=== PATIENT | male | born 1950 | race Caucasian/White ===

== ENCOUNTER 2019-03-03 09:57 | Emergency (ER) | payer BC ==
[~2019-03-03] VITALS: Ht 182.9 cm; Wt 77.6 kg
[2019-03-03 10:04] VITALS: BP 151/82
--- NOTE | 2019-03-03 10:11 | NUR ---
PT AMBULATED TO ER BED 07
[2019-03-03] MEDS ORDERED: NACL 0.9% 1,000 ML IV ONE (10:29)
[2019-03-03] MEDS ORDERED: THIAMINE 200 MG/2 ML VIAL IM ONE (10:35)
--- NOTE | 2019-03-03 10:37 | NUR ---
PT GOING TO CT AT THIS TIME
--- NOTE | 2019-03-03 10:38 | NUR ---
PT BIB FOR ALOC X1 PER , PT HAD A FALL 1 MONTH AGO, HIT HIS HEAD WITH LOSS OF CONCIOUSNESS. PT WAS NOT SEEN BY A DR AND HAS HEADACHES SINCE. PER MENTAL STATUS HAS DECLINED, PT HAS FORGOTEN HOW TO DO USUAL TASK. NEGATIVE STRENGTH ASYMETRY, NEGATIVE FACIAL ASYMETRY. PT AAOX3, PERLLA, SPEECH DELAYED, MEMORY RECAL DELAYED. VSS. ER MD TO SEE PT. HX: DEPRESSION RX: IBUPROFEN, WELBUTRIN, ASPRIN
[2019-03-03 11:03] LABS: BASOPHILS % (AUTO) 0.7 % (0.0-2.0); EOSINOPHILS # (AUTO) 0.1 K/uL (0-0.4); HEMATOCRIT 45.2 % (36-52); HEMOGLOBIN 15.4 g/dL (12.0-18.0); LYMPHOCYTES # (AUTO) 1.8 K/uL (2.0-11.5); LYMPHOCYTES % (AUTO) 27.4 % (20.5-51.1); MEAN CORPUSCULAR HEMOGLOBIN 34 pg (27-31); MEAN CORPUSCULAR HGB CONC 34 g/dL (33-37); MEAN CORPUSCULAR VOLUME 101.2 fL (80-94); MONOCYTES # (AUTO) 0.7 K/uL (0.8-1.0); NEUTROPHILS % (AUTO) 59.9 % (42.2-75.2); PLATELET COUNT (AUTO) 275 K/uL (140-450); RED BLOOD CELL COUNT(AUTO) 4.46 MIL/uL (4.20-6.10); RED CELL DISTRIBUTION WIDTH 13.7 % (11.6-13.7); WHITE BLOOD COUNT (AUTO) 6.7 K/uL (4.8-10.8)
[2019-03-03 11:10] LABS: ANION GAP 12.4 (8-16); CARBON DIOXIDE 26.5 mmol/L (21-32); CHLORIDE 103 mmol/L (98-107); GFR ARICAN-AMERICAN 95 mL/min (>90); GLUCOSE 100 mg/dL (74-106); POTASSIUM 3.9 mmol/L (3.5-5.1); SODIUM SERUM 138 mmol/L (136-145); UREA NITROGEN, BLOOD 21 mg/dL (7-18)
--- NOTE | 2019-03-03 11:15 | NUR ---
PT UNABLE TO PROVIDE URINE SAMPLE AT THIS TIME.
[2019-03-03 11:25] LABS: ACETONE, SERUM NEGATIVE (NEGATIVE); ALBUMIN 3.3 g/dL (3.4-5.0); ASPARTATE AMINOTRANSFERASE 21 U/L (15-37); TOTAL BILIRUBIN 0.6 mg/dL (0.0-1.0)
[2019-03-03 11:26] LABS: ACETAMINOPHEN < 0.5 ug/ml (10-30); AMYLASE 33 U/L (25-115); LIPASE 124 U/L (73-393); MAGNESIUM 2.2 mg/dL (1.8-2.4)
[2019-03-03 11:29] LABS: PROTHROMBIN TIME 10.3 secs (10.8-13.4)
[2019-03-03 11:32] VITALS: BP 140/89
--- NOTE | 2019-03-03 11:50 | NUR ---
Patient to be transferred to [facility]. Is being transferred due to HIGHER LEVEL OF CARE. Receiving facility has accepting physician and available space. ER physician has signed transfer form. Patient or responsible alliance party has agreed to transfer and signed form. Patient belongings inventoried and will be sent with patient. Copy of nursing notes, lab reports, EKG, Physicians Orders and X-rays to be sent with patient. Report called to TEODORA GRIFFIN at receiving facility. [facility] ambulance service has been called for transfer. ETA is 5-10.
== END 2019-03-03 11:50 | disposition short-term general hospital (02) ==
LOC: MED 09:57
DX: S06.5X9A Traumatic subdural hemorrhage with loss of consciousness of unspecified duration, initial encounter (principal); W19.XXXA Unspecified fall, initial encounter; Y93.89 Activity, other specified; Y92.89 Other specified places as the place of occurrence of the external cause; Y99.8 Other external cause status
CPT/HCPCS: 36415; 70450; 71045; 80053; 82009; 82140; 82150; 83605; 83690; 83735; 84484; 85025; 85610; 93005; 96360; 96372; 99285; G0480; G0482; J3411; J7030; 99284

== ENCOUNTER 2020-12-12 09:14 | Emergency (ER) | payer BC ==
[~2020-12-12] VITALS: Ht 180.3 cm; Wt 80.7 kg
[2020-12-12 09:23] VITALS: BP 132/80
--- NOTE | 2020-12-12 09:25 | NUR ---
Ambulated to bed 4
--- NOTE | 2020-12-12 09:31 | NUR ---
Received care of a 70 y/o male coming from home c/o left eye pain, irritation described as "stinging" which started yesterday. Noted red conjuctiva, mild swelling on lower eyelid. Pt reprts COPD, NKA.
[2020-12-12] MEDS ORDERED: TETRACAINE HCL/PF 0.5% OPTH 4 ML BTL OP ONE (09:45)
[2020-12-12] MEDS ORDERED: FLUORESCEIN OPTH STRIP 1 MG OP ONE (09:45)
[2020-12-12 10:33] VITALS: BP 129/78
--- NOTE | 2020-12-12 10:35 | NUR ---
Patient discharged with v/s stable. Written and verbal after care instructions given and explained. Patient alert, oriented and verbalized understanding of instructions. Ambulatory with steady gait. All questions addressed prior to discharge. ID band removed. Patient advised to follow up with PMD. Rx of Doxycycline, Erythromycin given. Patient educated on indication of medication including possible reaction and side effects. Opportunity to ask questions provided and answered.
== END 2020-12-12 10:35 | disposition home or self-care (01) ==
LOC: MED 09:14
DX: L03.213 Periorbital cellulitis (principal); J44.9 Chronic obstructive pulmonary disease, unspecified
CPT/HCPCS: 99283

== ENCOUNTER 2020-12-16 15:14 | Emergency (ER) | payer BC ==
[~2020-12-16] VITALS: Ht 182.9 cm; Wt 77.1 kg
[2020-12-16 15:24] VITALS: BP 159/119
--- NOTE | 2020-12-16 15:35 | NUR ---
[facility]: RIGHT EYE 20/20, LEFT EYE 20/30, BOTH EYE 20/20
--- NOTE | 2020-12-16 15:37 | NUR ---
WAIT AT LOBBY.
--- NOTE | 2020-12-16 17:53 | NUR ---
PATIENT LEFT WITHOUT BEING SEEN BY DR. RICH. NO FURTHER CARE PROVIDED FOR PATIENT.
== END 2020-12-16 17:53 | disposition left against medical advice (07) ==
LOC: MED 15:14
DX: H57.12 Ocular pain, left eye (principal); Z53.21 Procedure and treatment not carried out due to patient leaving prior to being seen by health care provider
CPT/HCPCS: 70480; 99281

== ENCOUNTER 2022-12-08 18:59 | Emergency (ER) | payer BC, MEDICARE ==
[~2022-12-08] VITALS: Ht 177.8 cm; Wt 71.7 kg
--- NOTE | 2022-12-08 18:59 | NUR ---
185: BIBA TO BED 06
--- NOTE | 2022-12-08 19:00 | NUR ---
PATIENT PRESENTED WITH OPA IN PLACE, BVM RESUMED BY RT. PT CONTINUED ON CPR VIA FIRE DEPT'S JANA DEVICE. ASYSTOLE ON MONITOR.
--- NOTE | 2022-12-08 19:00 | NUR ---
72/M CRIST[facility] FROM [facility], PER EMS WITNESSED ARREST BY FAMILY. DOWNTIME PRIOR TO ER ARRIVAL 45 MINUTES. CPR INITIATED ON SCENE UPON PD ARRIVAL AT 1800. PRIOR TO ARREST PT NOTED TO HAVE SOB. PER MEDICS, PATIENT IN PEA RHYTHM. GIVEN 6 EPI ON SCENE, BICARB 30 MIN; ASYTOLE ON ER MONITOR. ALLERGY: NKA PMH: COPD, NV 2021, STENT 15Y/O
--- NOTE | 2022-12-08 19:10 | NUR ---
TIME OF PRONOUNCED BY DR. TIPTON AT 1904. Addendum: 12/08/22 at 4 by MARCIAL SEE CODE SHEET
--- NOTE | 2022-12-08 19:12 | NUR ---
PT CAME IN FULL ARREST. CPR STARTED ON SITE BY EMS MECHANICAL COMPRESSION MACHINE. RT AT BEDSIDE TO ASSESS AND ASSIST WITH BAGGING WITH AMBU BAG AT 15L. PATIENT TIME OF CALLED AT 1904.
--- NOTE | 2022-12-08 19:22 | NUR ---
1921: [facility] SPOKE WITH YUE, DISPATCHER. INFORMATION PROVIDED; YUE BAEZ WILL CALL BACK WITH CASE NUMBER.
--- NOTE | 2022-12-08 19:26 | NUR ---
192: [facility] CONTACTED; SPOKE WITH SINTIA; CLINICAL INFORMATION GIVEN. PER SINTIA, PATIENT ELIGIBLE TISSUE DONATION. FOLLOW UP 1 HR WILL NEED NEXT OF KIN / AUTOMATIC LEHR OPERATOR UPDATE. REFERRAL CASE ID (DN#): [id number]
--- NOTE | 2022-12-08 19:44 | NUR ---
Report and transfer of care endorsed to NICK Burger.
--- NOTE | 2022-12-08 20:00 | NUR ---
I spoke to the (Candice Sky) to asks few question about the patient, inculding the primary dr phone number and mediactions.
--- NOTE | 2022-12-08 20:15 | NUR ---
Pt is primary doctor name is DR. ELVIE FENTON AND HER PHONE NUMBER IS [phone]. and his medication are prednision, benzonatate 100 mg tid, bupropion hcl 300 mg daily and albuterol as needed.
--- NOTE | 2022-12-08 21:00 | NUR ---
Kalia coronado called from coronery department gave the assistant food service director number [phone]. and pt is clear to to bead picker
--- NOTE | 2022-12-08 22:00 | NUR ---
Spoke to to update the clearance from special warfare combatant crewman depatment.
--- NOTE | 2022-12-08 22:30 | NUR ---
has an update for transportation for the body. Nurse called the [facility] and spoke to Irvin harris who is in charge of the morgue situation. his number is [phone]. He asked to talked to the and he said he will call back to update.
--- NOTE | 2022-12-08 22:32 | NUR ---
PER PTS , SHE NEEDS TO FILL OUT PAPERWORK, SEND IT BACK TO BRYANT SIERRA AT [facility] AND WE WILL RECEIVE A CALL REGARDING ARRANGEMENTS.
--- NOTE | 2022-12-08 22:34 | NUR ---
PTS TOOK PTS BELONGINGS.
--- NOTE | 2022-12-08 22:54 | NUR ---
Nurse has updated information for mago simmons loader [facility] at this moment waiting to to get an update from yasmin harris.
--- NOTE | 2022-12-08 23:04 | NUR ---
[facility] . SPOKE WITH SUSHANT, STATED AN EMAIL WILL BE SENT IN THE AM TO NOTIFY DR FENTON.
--- NOTE | 2022-12-08 23:07 | NUR ---
called the [facility] to let the primary drNayeli (Sowmya Trejo) about the patient who is . Benedict said that they will send a fax to
--- NOTE | 2022-12-08 23:19 | NUR ---
BODY MOVED TO ROOM 128 PER CARPENTER INSPECTOR MER. CHART GIVEN TO HOUSE SUP
--- NOTE | 2022-12-08 23:19 | NUR ---
post portmotum care done and pt is tranfered to room 128.
== END 2022-12-08 23:19 ==
LOC: MED 18:59
DX: I46.9 Cardiac arrest, cause unspecified (principal); I25.10 Atherosclerotic heart disease of native coronary artery without angina pectoris
CPT/HCPCS: 92950; 99285